=== PATIENT | female | born 1935 | race Hispanic/Latino ===

== ENCOUNTER 2016-06-13 01:00 | Emergency (ER) | payer MEDICARE, OTHER ==
[2016-06-13] MEDS ORDERED: NACL 0.9% 500 ML 500 ML IV ONE (01:34)
[2016-06-13] MEDS ORDERED: PROTONIX IV ONE (01:34)
[2016-06-13] MEDS ORDERED: MORPHINE IV ONE (01:34)
--- NOTE | 2016-06-13 01:36 | Emergency Department Report ---
ED General Adult HPI - General Chief complaint: Rectal Pain Stated complaint: REAR PAIN Time Seen by Provider: 06/13/16 01:22 Source: patient, RN notes reviewed Mode of arrival: Stretcher Limitations: No Limitations - History of Present Illness Initial comments: This is a 81-year-old female, previously unknown to me. She currently does not have a primary care doctor. May have had a history of stroke. Also reports a history of possible GI bleed. She is brought to the hospital by EMS for evaluation for atraumatic rectal pain. It has been present for a week. It is constant. It has no exacerbating or relieving factors. Patient denies headache , neck pain, chest pain, abdominal pain, shortness of breath. She denies irritative and obstructive urinary symptoms. She thinks that she is defecating , but she is not certain. -: Gradual Location: pelvis (rectum) Radiation: non-radiation Severity scale (0 -10): 7 Quality: aching Consistency: constant Improves with: none Worsens with: none Associated Symptoms: denies: confusion, chest pain, cough, diaphoresis, fever/ chills, headaches, loss of appetite, malaise, nausea/vomiting, rash, seizure, shortness of breath, syncope, weakness - Related Data Previous Rx's Medication Instructions Recorded Last Taken Type Magnesium Citrate [Citrate of 300 ml PO NOW #1 bottle 06/13/16 Unknown Rx Magnesia] Magnesium Oxide 400 mg PO QDAY #10 tablet 06/13/16 Unknown Rx Nitrofurantoin Sutton/M-Cryst 100 mg PO Q12HR #13 capsule 06/13/16 Unknown Rx [Macrobid CAP] Potassium Chloride 20 meq PO BID #14 [email or web address] 06/13/16 Unknown Rx Allergies Allergy/AdvReac Type Severity Reaction Status Date / Time Penicillins Allergy Intermediate Rash Verified 06/13/16 02:46 ED Review of Systems ROS: Stated complaint: REAR PAIN Other details as noted in HPI Constitutional: see HPI Eyes: as per HPI ENT: as per HPI Respiratory: see HPI Cardiovascular: as per HPI Gastrointestinal: as per HPI, other (rectal pain) Genitourinary: as per HPI Musculoskeletal: as per HPI Psychiatric: anxiety ED Past Medical Hx - Social History Smoking Status: Never Smoker Substance Use Type: None - Medications Home Medications: Home Medications Medication Instructions Recorded Confirmed Last Taken Type Magnesium Citrate [Citrate of 300 ml PO NOW #1 bottle 06/13/16 Unknown Rx Magnesia] Magnesium Oxide 400 mg PO QDAY #10 tablet 06/13/16 Unknown Rx Nitrofurantoin Sutton/M-Cryst 100 mg PO Q12HR #13 capsule 06/13/16 Unknown Rx [Macrobid CAP] Potassium Chloride 20 meq PO BID #14 [email or web address] 06/13/16 Unknown Rx ED Physical Exam - General Limitations: No Limitations General appearance: alert, anxious - Head Head exam: Present: atraumatic, normocephalic - Eye Eye exam: Present: normal appearance - ENT ENT exam: Present: mucous membranes dry - Neck Neck exam: Present: normal inspection, full ROM. Absent: tenderness, meningismus - Respiratory Respiratory exam: Present: normal lung sounds bilaterally. Absent: respiratory distress, wheezes, rales, rhonchi, stridor, chest wall tenderness - Cardiovascular Cardiovascular Exam: Present: normal rhythm, tachycardia. Absent: systolic murmur, diastolic murmur, rubs, gallop - GI/Abdominal GI/Abdominal exam: Present: soft, normal bowel sounds. Absent: distended, tenderness, guarding, rebound, rigid, pulsatile mass - Rectal Rectal exam: Present: normal inspection, normal rectal tone, black stool, tenderness (tenderness in the rectal vault is appreciated at 3/4:00.), other ( excoriated skin lesions noted externally. There is no external rectal tenderness.) - Extremities Exam Extremities exam: Present: normal inspection, full ROM, normal capillary refill. Absent: tenderness, pedal edema, joint swelling, calf tenderness - Back Exam Back exam: Present: normal inspection, full ROM. Absent: tenderness, CVA tenderness (R), CVA tenderness (L), muscle spasm, paraspinal tenderness, vertebral tenderness - Neurological Exam Neurological exam: Present: alert, oriented X3, other (Extraocular movements intact. Tongue midline. No facial droop. Facial sensation intact to light touch in the V1, V2, V3 distribution bilaterally. 5 and 5 strength in 4 extremities.. Sensation is intact to light touch in 4 extremities.). Absent: motor sensory deficit - Psychiatric Psychiatric exam: Present: anxious - Skin Skin exam: Present: warm, dry, intact, normal color. Absent: rash ED Course Vital Signs 06/13/16 06/13/16 06/13/16 01:27 01:35 02:01 Temperature 98.1 F Pulse Rate 108 H 98 H 103 H Respiratory 21 12 12 Rate Blood Pressure 154/104 Blood Pressure 154/104 [Left] O2 Sat by Pulse 99 100 98 Oximetry 06/13/16 06/13/16 06/13/16 02:27 03:00 04:01 Temperature Pulse Rate 119 H 86 Respiratory 18 22 25 H Rate Blood Pressure 177/99 144/76 Blood Pressure [Left] O2 Sat by Pulse 100 Oximetry 06/13/16 06/13/16 06/13/16 05:36 05:37 06:00 Temperature Pulse Rate 90 Respiratory 14 Rate Blood Pressure 152/92 Blood Pressure [Left] O2 Sat by Pulse 98 97 Oximetry 06/13/16 06/13/16 06/13/16 07:00 07:57 08:00 Temperature Pulse Rate 90 108 H 111 H Respiratory 20 20 15 Rate Blood Pressure 160/95 169/99 190/118 Blood Pressure [Left] O2 Sat by Pulse 99 98 97 Oximetry 06/13/16 09:00 Temperature Pulse Rate 84 Respiratory 14 Rate Blood Pressure 161/89 Blood Pressure [Left] O2 Sat by Pulse 96 Oximetry - Reevaluation(s) Reevaluation #1: 06/13/16 02:27 Differential diagnosis: Upper GI bleed, anal fissure, constipation, perirectal/ perianal abscess Assessment and plan: Elderly female with rectal pain. Incidentally found to have black stool. She is not taking iron, she is not taking medications. Rectal temperature 98.7 degrees. Laboratory studies, CT scan of the pelvis, urinalysis are pending. Reevaluation #2: 06/13/16 05:35 urinalysis suggests urinary tract infection. CT scan of the pelvis suggest fecal impaction with surrounding inflammation. Hemoglobin and hematocrit are elevated. I appreciated the patient had black stool. However given her fecal impaction, lack of nausea and vomiting, lack of history of hematemesis and no inflammation demonstrated on CT scan, I think the patient's most likely etiology of pain is fecal impaction with surrounding inflammation. Think upper GI bleed is very unlikely. She will be given a fleets enema. We will start her on oral antibiotics for her urinary tract infection. She will be discharged instructions to start sitz baths, and to follow-up with gastroenterology. Return precautions are extensively reviewed. Resting heart rate in the low 90s, patient reports she is feeling improved, she is tolerating liquid feeds. 06/13/16 05:43 ED Medical Decision Making - Lab Data Result diagrams: 06/13/16 01:55 06/13/16 01:55 Vital Signs 06/13/16 01:27 Temperature 98.1 F Pulse Rate 108 H Respiratory 21 Rate Blood Pressure 154/104 Blood Pressure 154/104 [Left] O2 Sat by Pulse 99 Oximetry - Radiology Data Radiology results: report reviewed, image reviewed CT scan of the pelvis: There is fecal impaction in the rectum. There is inflammation of the surrounding perirectal fat. It is no discrete fluid collection or abscess. Urinary bladder unremarkable. Status post hysterectomy. Critical care attestation.: If time is entered above; I have spent that time in minutes in the direct care of this critically ill patient, excluding procedure time. ED Disposition Clinical Impression: Rectal pain Disposition: DISCHARGED TO HOME OR SELFCARE Is pt being admited?: No Does the pt Need Aspirin: No Condition: Stable Instructions: Fecal Impaction (ED) Additional Instructions: Laboratory studies suggested decreased magnesium level, decreased potassium level, urinary tract infection. CT scan of the pelvis demonstrated rectal inflammation, and constipation/fecal impaction. Drink 6-8 cups of water a day. Eat plenty of fiber and vegetables. Use the magnesium citrate as directed. Cultures were sent today, results will be available in the next 3-5 days. Have a primary care doctor contact the medical records department to obtain culture results. I also recommend that you start performing sitz baths. You can read about these online through [employer] search. Return to the ER right away with new pain, worsened pain, migration of pain, fevers or chills, intractable nausea or vomiting, inability to tolerate liquid feedings. Prescriptions: Magnesium Citrate [Citrate of Magnesia] 300 ml PO NOW #1 bottle Nitrofurantoin Sutton/M-Cryst [Macrobid CAP] 100 mg PO Q12HR #13 capsule Magnesium Oxide 400 mg PO QDAY #10 tablet Potassium Chloride 20 meq PO BID #14 [email or web address] Referrals: DR SAL [Other] - 3-5 Days AVERY LOMAS MD [Staff Physician] - 3-5 Days
[2016-06-13 02:30] LABS: Blood Urea Nitrogen 5 mg/dL (7-17); Calcium 8.4 mg/dL (8.4-10.2); Carbon Dioxide 27 mmol/L (22-30); Chloride 101.7 mmol/L (98-107); Glucose 119 mg/dL (65-100); Sodium 144 mmol/L (137-145)
[2016-06-13 02:32] LABS: Anion Gap 18 mmol/L; Hematocrit 46.8 % (30.3-42.9); Mean Corpuscular HGB Conc 34 % (30-34); Mean Corpuscular Hemoglobin 36 pg (28-32); Mean Corpuscular Volume 105 fl (79-97); Platelet Count 437 K/mm3 (140-440); Red Blood Count 4.48 M/mm3 (3.65-5.03); Red Cell Distribution Width 12.9 % (13.2-15.2); White Blood Count 7.2 K/mm3 (4.5-11.0)
[2016-06-13] MEDS ORDERED: K-DUR PO ONE (02:35)
[2016-06-13 03:47] LABS: Bacteria,Urine 1+ /HPF (Negative); Bilirubin,Urine NEG (Negative); Blood,Urine SM (Negative); Ketones,Urine NEG (Negative); Leukocyte Esterase,Urine LG (Negative); Nitrite,Urine NEG (Negative); Protein,Urine <15 mg/dL mg/dL (Negative); Urobilinogen,Urine < 2.0 mg/dL (<2.0)
[2016-06-13] MEDS ORDERED: NACL ONE (04:02)
--- NOTE | 2016-06-13 05:27 | Cat Scan Report ---
FINAL REPORT PROCEDURE: CT PELVIS W CON TECHNIQUE: Computerized axial tomography of the pelvis was performed following the IV injection of iodinated nonionic contrast. HISTORY: rectal pain COMPARISON: No prior studies are available for comparison. TECHNICAL QUALITY: Satisfactory. FINDINGS: There is a fecal impaction in the rectum. There is inflammation of the surrounding perirectal fat. There is no discrete fluid collection or abscess. There has been a hysterectomy. Remainder of the bowel is unremarkable. There is no free fluid. The abdominal aorta and branches are patent and normal in caliber. Bony structures are within normal limits. Urinary bladder is unremarkable. IMPRESSION: There is a fecal impaction in the rectum. There is inflammation of the surrounding perirectal fat. There is no discrete fluid collection or abscess. There has been a hysterectomy.
[2016-06-13] MEDS ORDERED: FLEET MINERAL OIL PR ONE (05:34)
[2016-06-13] MEDS ORDERED: MAG-OX PO ONE ×2 (05:38→08:00)
[2016-06-13] MEDS ORDERED: MACROBID PO ONE (05:44)
[2016-06-13] MEDS ORDERED: TYLENOL PO ONE (07:00)
[2016-06-13] MEDS ORDERED: NACL 0.9% 1000 ML 1,000 ML ONE (07:16)
[2016-06-13] MEDS ORDERED: TYLENOL ONE (07:37)
[2016-06-13] MEDS: KCL 10MEQ/100ML 100 ML IV SCH ×2 (07:41→08:35)
[2016-06-13] MEDS ORDERED: NACL 0.9% 1000 ML 1,000 ML IV ONE (07:44)
[2016-06-13] MEDS ORDERED: KCL 10MEQ/100ML 100 ML IV ONE (08:32)
[2016-06-13] MEDS ORDERED: FLEET PR ONE (09:23)
[2016-06-13 09:32] VITALS: BP 161/89
== END 2016-06-13 09:57 | disposition home or self-care (01) ==
LOC: ED 01:00
DX: K62.89 Other specified diseases of anus and rectum (principal); Z88.0 Allergy status to penicillin
CPT/HCPCS: 36415; 51701; 72193; 80048; 81001; 82271; 83735; 85027; 85610; 86850; 86900; 86901; 96361; 96365; 96375; 99285; C9113; J2270; J3480; J7030; J7040; Q9967